=== PATIENT | female | born 1955 | race Caucasian/White ===

== ENCOUNTER 2023-01-24 09:58 | Emergency (ER) | payer MEDICARE ==
[~2023-01-24] VITALS: Ht 165.1 cm; Wt 68.9 kg
[2023-01-24] MEDS ORDERED: predniSONE 20 MG TABLET ONE (10:20)
[2023-01-24] MEDS ORDERED: diphenhydrAMINE HCL 50 MG CAPSULE ONE (10:21)
[2023-01-24] MEDS ORDERED: FAMOTIDINE (20 MG) 20 MG TABLET ONE (10:21)
[2023-01-24] MEDS: diphenhydrAMINE HCL 50 MG CAPSULE PO ONE (10:23)
[2023-01-24] MEDS: FAMOTIDINE (20 MG) 20 MG TABLET PO ONE (10:24)
[2023-01-24] MEDS: predniSONE 10 MG TABLET PO ONE (10:24)
[2023-01-24] MEDS ORDERED: EPIN0.3P3 IM (10:47)
[2023-01-24] MEDS ORDERED: PRED20TA PO (10:47)
[2023-01-24] MEDS ORDERED: KETOROLAC TROMETHAMINE 15 MG/ML VIAL ONE (11:39)
[2023-01-24] MEDS: KETOROLAC TROMETHAMINE INJ 30 MG/ML VIAL IV ONE (11:43)
[2023-01-24 12:36] VITALS: BP 124/77; TEMP 98.4; O2SAT 100
== END 2023-01-24 12:37 | disposition home or self-care (01) ==
LOC: ER 10:03
DX: T63.461A Toxic effect of venom of wasps, accidental (unintentional), initial encounter (principal); T78.2XXA Anaphylactic shock, unspecified, initial encounter; E78.00 Pure hypercholesterolemia, unspecified; Z79.899 Other long term (current) drug therapy; Z60.2 Problems related to living alone; X58.XXXA Exposure to other specified factors, initial encounter
CPT/HCPCS: 99284; 96374; Q0163; J7512 ×2; J1885